=== PATIENT | female | born 1965 | race Two or more races ===

== ENCOUNTER → 2024-07-11 | Outpatient (CLI) | payer MEDICAID, SELFPAY ==
--- NOTE | 2024-07-11 08:45 | XR_ITS ---
Examination: Breast ultrasound, unilateral, left complete Date and time of exam: July 11, 2024 0852 hours INDICATIONS: Mammogram May 10, 2024 12 mm, 10 mm oval masses inner upper left breast Technique: Real-time parker scale ultrasonographic imaging performed left breast including all 4 quadrants as well as nipple retroareolar and axillary region. Findings: 2:00 oval mass lobular margins 14 x 13 mm 3:00 oval mass lobular margins 11 x 11 mm 11:00 cyst 6 x 6 mm IMPRESSION: BI-RADS Category 3: Probably benign findings One additional 6 month left breast sonogram follow-up is needed to document stability of nodules described above
--- NOTE | 2024-07-11 09:02 | XR_ITS ---
Examination: Diagnostic digital mammography, unilateral, left Computer aided detection 3-D breast Tomosynthesis, unilateral Date and time of exam: July 11, 2024 0944 hours INDICATIONS: Mammogram May 10, 2024 12 mm 10 mm masses inner upper left breast Technique: Nonmagnified MLO, CC views of the left breast have been obtained, reconstructed from 3-D Tomosynthesis images. R2 computer aided detection program utilized for evaluation of suspicious masses and/or abnormal calcifications. 3-D Tomosynthesis images obtained. Findings: The breast is heterogeneously dense, which may obscure small masses 2:00 nodule 13 mm, ultrasound left breast today demonstrates 2:00 mass 14 x 13 mm, 3:00 mass 11 x 11 mm Impression: BI-RADS category 3: Probably benign findings One additional 6 month left mammogram follow-up is needed to document stability of 2:00 nodule described above
== END | disposition home or self-care (01) ==
LOC: CDIM 08:24
PROVIDERS: Referring Provider Physician Assistant Medical; Visit Provider Physician Assistant Medical
DX: R92.332 Mammographic heterogeneous density, left breast (principal); N63.21 Unspecified lump in the left breast, upper outer quadrant; N63.25 Unspecified lump in the left breast, overlapping quadrants
CPT/HCPCS: 76641; 77061; 77065; G0279

== ENCOUNTER → 2025-04-28 | Outpatient (CLI) | payer MEDICAID, SELFPAY ==
--- NOTE | 2025-04-28 09:00 | XR_ITS ---
Examination: Breast ultrasound, unilateral, left complete Date and time of exam: April 28, 2025, 0902 hours INDICATIONS: Mammogram July 11, 2024 2:00 nodule 13 mm,. Technique: Real-time parker scale ultrasonographic imaging performed left breast including all 4 quadrants as well as nipple retroareolar and axillary region. Findings: Multiple benign cysts, the largest in the 1 o'clock position 5 x 4 mm No solid nodules IMPRESSION: BI-RADS Category 2: Benign findings
--- NOTE | 2025-04-28 09:30 | XR_ITS ---
Examination: Diagnostic digital mammography, unilateral, left Computer aided detection 3-D breast Tomosynthesis, unilateral Date and time of exam: April 28, 2025, 0932 hours INDICATIONS: 13 mm nodule 2 o'clock position left breast Technique: Nonmagnified MLO, CC views of the left breast have been obtained, reconstructed from 3-D Tomosynthesis images. R2 computer aided detection program utilized for evaluation of suspicious masses and/or abnormal calcifications. 3-D Tomosynthesis images obtained. Findings: The breast is heterogeneously dense, which may obscure small masses 10 mm nodule is depicted inner upper left breast on the current study Impression: BI-RADS category 0: Incomplete: Need additional imaging evaluation 10 mm nodule inner upper left breast, recommend left breast sonography follow-up
== END | disposition home or self-care (01) ==
LOC: CDIM 08:44
PROVIDERS: PCP Physician Assistant Medical; Referring Provider Physician Assistant Medical; Visit Provider Physician Assistant Medical
DX: R92.8 Other abnormal and inconclusive findings on diagnostic imaging of breast (principal); N63.22 Unspecified lump in the left breast, upper inner quadrant
CPT/HCPCS: 76641; 77061; 77065; G0279